=== PATIENT | female | born 1975 | race Two or more races ===

== ENCOUNTER 2023-05-19 09:18 | Outpatient (CLI) | payer OTHER | END 2023-05-19 09:31 | disposition home or self-care (01) | LOC: TOM 09:18 | PROVIDERS: ATTEND Specialist | DX: R60.0 Localized edema (principal); R14.0 Abdominal distension (gaseous) ==

== ENCOUNTER 2024-11-03 12:42 | Emergency (ER) | payer OTHER ==
[~2024-11-03] VITALS: Ht 160 cm; Wt 92.5 kg
[2024-11-03] MEDS ORDERED: METFORMIN HCL500 M3 PO (12:58)
[2024-11-03] MEDS ORDERED: SEROQUEL XR400 MG PO (12:59)
[2024-11-03 17:25] LABS: HEMATOCRIT 39.3 % (36.0-45.00); HEMOGLOBIN 12.7 g/dL (12.0-15.00); MEAN CORPUSCULAR HEMOGLOBIN 26.1 pg (27.00-32.0); MEAN CORPUSCULAR HGB CONC 32.2 g/dl (32.0-36.0); PLATELET COUNT 281 K/uL (150-450); RED BLOOD COUNT 4.85 M/uL (4.00-6.00); RED CELL DISTRIBUTION WIDTH 13.8 % (11.5-14.5)
[2024-11-03 17:55] LABS: ALBUMIN 3.5 gm/dL (3.4-5.0); BILIRUBIN TOTAL 0.35 mg/dL (0.3-1.2); CALCIUM 8.9 mg/dL (8.5-10.1); CREATININE SERUM 0.87 mg/dL (0.55-1.02); GFR 69.2; GLOBULINA 4.5 G/DL (2.4-3.5); POTASSIUM 3.71 mEq/L (3.5-5.1)
== END 2024-11-03 21:45 | disposition left against medical advice (07) ==
LOC: ER 12:44
PROVIDERS: Preventive Medicine Public Health & General Preventive Medicine
DX: R42 Dizziness and giddiness (principal); I10 Essential (primary) hypertension; E11.9 Type 2 diabetes mellitus without complications; Z79.84 Long term (current) use of oral hypoglycemic drugs; Z88.1 Allergy status to other antibiotic agents